=== PATIENT | male | born 1995 | race African-American/Black ===

== ENCOUNTER 2023-10-03 18:37 | Emergency (ER) | payer MEDICAID, OTHER ==
[~2023-10-03] VITALS: Ht 177.8 cm; Wt 63.8 kg
[2023-10-03] MEDS ORDERED: HYDROcodone-ACET 10/325MG TAB PO ONE (19:45)
[2023-10-03] MEDS ORDERED: KETOROLAC TROMETH 60MG/2ML VIAL IM ONE (19:45)
[2023-10-03] MEDS ORDERED: IBU600T PO (20:08)
[2023-10-03] MEDS ORDERED: HYDR-4902 PO (20:08)
[2023-10-03 20:44] VITALS: BP 143/101; PULSE 68; RESP 19; TEMP 98.3; O2SAT 98
== END 2023-10-03 20:57 | disposition home or self-care (01) ==
LOC: ER 18:37
DX: M79.18 Myalgia, other site (principal); M54.2 Cervicalgia; M25.511 Pain in right shoulder; V43.52XA Car driver injured in collision with other type car in traffic accident, initial encounter; Y93.89 Activity, other specified; Y92.89 Other specified places as the place of occurrence of the external cause; Y99.8 Other external cause status
CPT/HCPCS: 96372; 99283; J1885